=== PATIENT | male | born 2000 | race Hispanic/Latino ===

== ENCOUNTER 2020-06-08 13:56 | Emergency (ER) | payer SELFPAY ==
[~2020-06-08] VITALS: Ht 180.3 cm; Wt 90.0 kg
[2020-06-08] MEDS ORDERED: CEPHALEXIN500 M1 PO (14:27)
[2020-06-08 15:45] VITALS: BP 107/57
== END 2020-06-08 15:45 | disposition home or self-care (01) | DRG 605 ==
LOC: ED 13:56
PROC: 0HQ0XZZ Repair Scalp Skin, External Approach (ICD-10-PCS; principal; 2020-06-08)
DX: S01.01XA Laceration without foreign body of scalp, initial encounter (principal); W22.09XA Striking against other stationary object, initial encounter; Y93.89 Activity, other specified; Y92.009 Unspecified place in unspecified non-institutional (private) residence as the place of occurrence of the external cause